=== PATIENT | male | born 1980 | race Caucasian/White ===

== ENCOUNTER 2016-05-31 00:11 | Emergency (ER) | payer OTHER | END 2016-05-31 03:12 | disposition home or self-care (01) | LOC: ED 00:11 | DX: S61.217A Laceration without foreign body of left little finger without damage to nail, initial encounter (principal); S61.213A Laceration without foreign body of left middle finger without damage to nail, initial encounter; S71.111A Laceration without foreign body, right thigh, initial encounter; X99.0XXA Assault by sharp glass, initial encounter; Y92.410 Unspecified street and highway as the place of occurrence of the external cause; F17.210 Nicotine dependence, cigarettes, uncomplicated ==